=== PATIENT | male | born 1930 | race Caucasian/White ===

== ENCOUNTER 2018-09-30 03:08 | Inpatient (IN) | payer OTHER, BC ==
[~2018-09-30] VITALS: Ht 188 cm; Wt 79.9 kg
[2018-09-30 03:10] VITALS: BP_SYST 145
--- NOTE | 2018-09-30 03:10 | NUR ---
Patient to ER bed 8 to gown for evaluation. Side rails up.
--- NOTE | 2018-09-30 03:25 | NUR ---
ER at bedside examining patient.
[2018-09-30] MEDS ORDERED: NS 500 ML IV ONE (03:30)
[2018-09-30] MEDS ORDERED: ASPIRIN 81 MG TAB.CHEW PO ONE (03:45)
[2018-09-30] MEDS ORDERED: PANTOPRAZOLE SODIUM 40 MG/VIAL (PROTONIX) IVP ONE (03:45)
[2018-09-30] MEDS ORDERED: NITROGLYCERIN 1 INCH (GM) OINT. TP ONE (03:45)
[2018-09-30 04:18] LABS: BASOPHILS % (AUTO) 0.3 % (0.0-2.0); EOSINOPHILS # (AUTO) 0.1 K/uL (0.0-0.4); EOSINOPHILS % (AUTO) 0.6 % (0.0-4.0); HEMATOCRIT 40.8 % (36-54); HEMOGLOBIN 13.4 g/dL (14.0-18.0); LYMPHOCYTES # (AUTO) 0.9 K/uL (1.0-5.5); LYMPHOCYTES % (AUTO) 10.2 % (20.5-51.5); MEAN CORPUSCULAR HEMOGLOBIN 32 pg (27-31); MEAN CORPUSCULAR HGB CONC 33 % (32-36); MEAN CORPUSCULAR VOLUME 96 fL (79.0-98.0); MONOCYTES # (AUTO) 0.6 K/uL (0.0-1.0); MONOCYTES % (AUTO) 6.6 % (1.7-9.3); NEUTROPHILS # (AUTO) 6.8 K/uL (1.8-7.7); NEUTROPHILS % (AUTO) 82.3 % (40.0-70.0); PLATELET COUNT (AUTO) 196 K/uL (130-430); RED BLOOD CELL COUNT(AUTO) 4.25 MIL/uL (4.2-6.2); RED CELL DISTRIBUTION WIDTH 12.1 % (9.0-15.0); WHITE BLOOD COUNT (AUTO) 8.4 K/uL (4.8-10.8)
--- NOTE | 2018-09-30 04:20 | NUR ---
Patient arrived from home aaox4 and able to verbalize his needs. Able to ambulate with a steady gait. Complaints of chest pressure since 1300 09/29/18. Took peptobismol without any relief. Pain to the left chest, non radiating. Denies any sob, fever, or chills. patient states "feels like indigestion". No other medications taken.
[2018-09-30 04:51] LABS: ANION GAP 7 (5-15); CALCIUM 9.7 mg/dL (8.4-11.0); CHLORIDE 97 mmol/L (98-107); CREATININE 1.13 mg/dL (0.55-1.30); GLUCOSE 139 mg/dL (70-99); POTASSIUM 3.9 mmol/L (3.5-5.1); SODIUM SERUM 133 mmol/L (136-145); UREA NITROGEN, BLOOD 18 mg/dL (8-21)
[2018-09-30 04:54] LABS: PROTHROMBIN TIME 9.9 SECS (9.5-12.5)
[2018-09-30 04:56] LABS: ALANINE AMINOTRANSFERASE 28 U/L (12-78); ALBUMIN 3.6 g/dL (3.4-4.8); ASPARTATE AMINOTRANSFERASE 28 U/L (10-37); TOTAL BILIRUBIN 1.4 mg/dL (0.0-1.0)
--- NOTE | 2018-09-30 05:10 | NUR ---
Patient resting in bed comfortably with at the bedside. States "Pain is at the same level". No respiratory distress.
[2018-09-30] MEDS ORDERED: MORPHINE 4 MG/ML INJ. SYRINGE IVP ONE (05:15)
[2018-09-30] MEDS ORDERED: LIDOCAINE VISCOUS 2%, 15 ML UDC MM ONE (05:15)
[2018-09-30] MEDS ORDERED: BELLADONNA ALKALOIDS/PHENOBARB 5 ML UDC PO ONE (05:15)
[2018-09-30] MEDS ORDERED: MAG-AL HYDROX/SIMETH 30 ML UDC PO ONE (05:15)
[2018-09-30] MEDS ORDERED: TERA5CAP4 PO (05:54)
[2018-09-30] MEDS ORDERED: NITROGLYCERIN 0.4 MG TAB.SUBL SL PRN (06:30)
[2018-09-30] MEDS ORDERED: MORPHINE 4 MG/ML INJ. SYRINGE IVP PRN (06:30)
--- NOTE | 2018-09-30 06:47 | NUR ---
Patient will be admitted to care of Dr Chambers. Admitted to Tele unit. Will go to room 130-A. Belongings list completed. Summary report printed. Report will be given at bedside.
--- NOTE | 2018-09-30 07:05 | NUR ---
Admission Note Received patient from ER with diagnosis of chest pain. Initial Plan of Care discussed-patient verbalized understanding. Family at bedside. Oriented to room, call light, pain management and safety.
--- NOTE | 2018-09-30 07:06 | NUR ---
CONSULTATION PAGED REASON FOR CONSULTATION:CHEST PAIN WAS CONSULT CALLED?Y PERSON WHO WAS NOTIFIED:LONG CONSULTING PHYSICIAN:LENIN CHILDS MASTER BLACK BELT SPECIALTY:CARDIO MASTER BLACK BELT PHONE NUMBER:[phone] ORDERING PHYSICIAN:[facility]
--- NOTE | 2018-09-30 07:08 | NUR ---
CONSULTATION PAGED REASON FOR CONSULTATION:GASTRIC REFLUX WAS CONSULT CALLED?Y PERSON WHO WAS NOTIFIED:NILSA CONSULTING PHYSICIAN:ADEN MISHRA ([facility] NURSE SPECIALIST) SHAPER MACHINE HAND SPECIALTY:GI SHAPER MACHINE HAND PHONE NUMBER:[phone] ORDERING PHYSICIAN:MICHELE DEJESUS
[2018-09-30 07:17] VITALS: BP_SYST 129
[2018-09-30 08:00] VITALS: BP_SYST 124
--- NOTE | 2018-09-30 08:30 | NUR ---
opening note pt awake alert, c/o back discomfort due to bed. pt reoriented to call light use, bed alarm is in place with bed in the lowest position.
[2018-09-30] MEDS: PANTOPRAZOLE SODIUM 40 MG/VIAL (PROTONIX) IVP SCH ×2 (09:00→21:24)
[2018-09-30] MEDS: MORPHINE 4 MG/ML INJ. SYRINGE IVP PRN (10:00)
--- NOTE | 2018-09-30 10:15 | NUR ---
PT C/O PAIN GIVEN MORPHINE PRN PER ORDER. Addendum: 09/30/18 at 1840 by Sara Newton RN RIGHT SIDED CHEST PAIN
[2018-09-30 12:30] VITALS: BP_SYST 128
--- NOTE | 2018-09-30 14:53 | NUR ---
p t resting in bed no distress. safety maintained.
--- NOTE | 2018-09-30 16:19 | NUR ---
pt ambulating with family at this time.
[2018-09-30 16:40] VITALS: BP_SYST 122
--- NOTE | 2018-09-30 18:38 | NUR ---
PT AMBULATING STEADY GAIT WITH FAMILY.
--- NOTE | 2018-09-30 19:15 | NUR ---
OPENING NOTES Late entry due to patient care. Bedside report received from day shift nurse. Patient received AOx4, awake, watching TV at this time. No s/s of acute distress noted, patient states discomfort at chest, 3/10 pain, but tolerable. HOB raised. Call light with patient. Bed alarm on. Bed is locked and at lowest position. Will continue to monitor.
--- NOTE | 2018-09-30 19:35 | NUR ---
closing note all need met through shift, safety maintained, care endorsed to retail shift supervisor, rn
[2018-09-30 20:00] VITALS: BP_SYST 128
[2018-09-30] MEDS ORDERED: TERAZOSIN HCL 5 MG CAPSULE (HYTRIN) PO SCH (21:00)
--- NOTE | 2018-09-30 21:20 | NUR ---
REFUSED MEDS/EDUCATION:HOME MEDS/NEW IV SITE Patient refused BP medication, Hytrin, patient stated that his brought that medication and he took 10 mg already. Patient's BP within normal limits at this time. Patient educated to not take medications from home and to only take medications approved by his doctor during his stay in the hospital. Patient verbalized understanding. Previous IV site was accidentally pulled out, right AC, 20G, catheter fully intact, no active bleeding noted. New IV site initiated at right wrist, 20G, patent, no signs of infiltration noted. Call light with patient. Bed alarm on. Will continue to monitor.
--- NOTE | 2018-09-30 23:00 | NUR ---
ROUNDS Patient sleeping at this time. No s/s of acute distress noted. Breathing even and unlabored. Call light with patient. Will continue to monitor.
--- NOTE | 2018-10-01 01:00 | NUR ---
ROUNDS Patient sleeping comfortably. No s/s of acute distress noted. Breathing even and unlabored. Call light with patient. Will continue to monitor.
[2018-10-01 01:04] VITALS: BP_SYST 122
[2018-10-01] MEDS: MORPHINE 4 MG/ML INJ. SYRINGE IVP PRN (02:10)
--- NOTE | 2018-10-01 02:10 | NUR ---
CHEST PAIN Patient complained of 7/10 chest pain at this time. Patient stated that it hurts when he takes a deep breath. Morphine to be administered per PRN orders.
--- NOTE | 2018-10-01 04:00 | NUR ---
TACHYCARDIA RN made aware that patient's heart rate spikes up from 120-130, then comes back down to normal limits. Patient in bed, denies any pain or discomfort, no SOB, breathing even and unlabored. BP 106/59, SPO2 94, respiratory rate is 16. No s/s of acute distress noted. Will continue to monitor.
--- NOTE | 2018-10-01 05:00 | NUR ---
REASSESSED/ASSISTED TO BATHROOM Patient assisted to bathroom and back to bed, tolerated activity well, no s/s of acute distress noted, patient denies chest pain or trouble breathing. Breathing is even and unlabored. BP at 110/62, Respiration rate 16, SPO2 94. Heart rate still erratic, goes as high as 130 and goes back to normal limits. Call light with patient, will continue to monitor.
--- NOTE | 2018-10-01 06:45 | NUR ---
CLOSING NOTE Patient in bed resting, eyes closed, appears to be asleep. No s/s of acute distress noted. Breathing is even and unlabored. IV site is patent, no signs of infiltration or infection. HOB raised. All needs met throughout shift. Fall and safety precautions maintained throughout shift. Will continue to monitor until patient care is endorsed to oncoming day shift nurse.
[2018-10-01] MEDS ORDERED: SIMETHICONE 40 MG/0.6 ML ML ONE (06:46)
[2018-10-01] MEDS: MIDAZOLAM HCL 5 MG/5 ML VIAL ONE ×3 (06:47→07:37)
[2018-10-01] MEDS: MEPERIDINE HCL/PF 100 MG/ML AMP ONE ×2 (06:47→07:34)
[2018-10-01 06:57] LABS: BASOPHILS # (AUTO) 0.1 K/uL (0.0-0.2); BASOPHILS % (AUTO) 0.6 % (0.0-2.0); EOSINOPHILS % (AUTO) 0.5 % (0.0-4.0); HEMATOCRIT 36.6 % (36-54); HEMOGLOBIN 12.4 g/dL (14.0-18.0); LYMPHOCYTES # (AUTO) 0.9 K/uL (1.0-5.5); LYMPHOCYTES % (AUTO) 10.8 % (20.5-51.5); MEAN CORPUSCULAR HEMOGLOBIN 33 pg (27-31); MEAN CORPUSCULAR HGB CONC 34 % (32-36); MEAN CORPUSCULAR VOLUME 96 fL (79.0-98.0); MONOCYTES # (AUTO) 0.8 K/uL (0.0-1.0); NEUTROPHILS # (AUTO) 6.6 K/uL (1.8-7.7); NEUTROPHILS % (AUTO) 79.1 % (40.0-70.0); PLATELET COUNT (AUTO) 158 K/uL (130-430); RED BLOOD CELL COUNT(AUTO) 3.81 MIL/uL (4.2-6.2); WHITE BLOOD COUNT (AUTO) 8.4 K/uL (4.8-10.8)
[2018-10-01 07:04] LABS: CHOLESTEROL 111 mg/dL (<200); HDL CHOLESTEROL 58 mg/dL (>45); LDL CHOLESTEROL 47 mg/dL (<100); TRIGLYCERIDES 39 mg/dL (30-150)
[2018-10-01 07:06] LABS: ALANINE AMINOTRANSFERASE 52 U/L (12-78); ALBUMIN 2.8 g/dL (3.4-4.8); ANION GAP 9 (5-15); CALCIUM 8.9 mg/dL (8.4-11.0); CHLORIDE 101 mmol/L (98-107); CREATININE 1.16 mg/dL (0.55-1.30); GLUCOSE 135 mg/dL (70-99); POTASSIUM 4.1 mmol/L (3.5-5.1); SODIUM SERUM 140 mmol/L (136-145); TOTAL BILIRUBIN 1.6 mg/dL (0.0-1.0); UREA NITROGEN, BLOOD 18 mg/dL (8-21)
[2018-10-01 07:07] LABS: ASPARTATE AMINOTRANSFERASE 48 U/L (10-37); LIPASE 105 U/L (73-393)
--- NOTE | 2018-10-01 07:15 | NUR ---
Opening Note/Patient Taken to EGD patient resting in bed, awake and alert, at bedside, denies pain, breathing unlabored and symmetrical, patient being taken to EGD, safety precautions in place, will assess when he returns
--- NOTE | 2018-10-01 08:33 | NUR ---
Patient Back on Unit/Ultrasound At Bedside at this time, will assess when finished
[2018-10-01] MEDS: PANTOPRAZOLE SODIUM 40 MG/VIAL (PROTONIX) IVP SCH (09:52)
[2018-10-01 09:56] VITALS: BP_SYST 104
--- NOTE | 2018-10-01 09:57 | NUR ---
Medication Administration educated patient regarding med, verbalized understanding, IV site patent, denies pain, breathing unlabored and symmetrical, patient positioned to his side, educated patient regarding use of call light for assistance, verbalized understanding, call light and bedside table left within reach, will continue to monitor
--- NOTE | 2018-10-01 11:13 | NUR ---
Nutrition Update Austin Scale 17 noted. Pt admitted for chest pain. Diet: regular, 2 gm Na, cardiac, soft BMI: 22.6 kg/m2 RD to follow per nutrition care standards. Addendum: 10/01/18 at [address] CORRECTION: Austin Scale 18 noted.
--- NOTE | 2018-10-01 12:19 | NUR ---
Patient Sitting Eating lunch at this time, legs dangling, at bedside, denies pain, no SOB, no signs of distress, educated patient on use of call light for assistance, verbalized understanding, table and call light left within reach, will continue to monitor
[2018-10-01 12:36] VITALS: BP_SYST 100
[2018-10-01] MEDS ORDERED: IOHEXOL 100 ML IV ONE (13:15)
--- NOTE | 2018-10-01 13:26 | NUR ---
Patient Being Taken t Addendum: 10/01/18 at 1326 by Shira Morse RN to procedure at this time, will assess when he returns
--- NOTE | 2018-10-01 15:10 | NUR ---
Dr. Lynn Rounded updated him with patient's EGD, informed him CT of chest was performed today, verbalized understanding, stated to call Dr. Rosas and inform him of results Addendum: 10/01/18 at 1522 by Shira Morse RN Spoke with Dr. Rosas, informed him of CT chest results, stated patient is cleared from a cardiac standpoint, will call Dr. Lynn and inform
--- NOTE | 2018-10-01 15:30 | NUR ---
Paged Dr. Lynn at this time to inform him patient cleared by cardio, will await call back
--- NOTE | 2018-10-01 16:33 | NUR ---
Paged Dr. Lynn at this time, will await call back
[2018-10-01 16:37] VITALS: BP_SYST 110
--- NOTE | 2018-10-01 17:15 | NUR ---
Spoke with Dr. Lynn informed him spoke with Dr. Rosas and stated he is cleared on cardiac standpoint, Dr. Lynn verbalized understanding, stated patient can be discharged and stated patient can call office tomorrow for prescription, will inform patient and
[2018-10-01 17:53] VITALS: BP_SYST 110
[2018-10-02 08:10] LABS: HEPATITIS A AB, IgM Negative (Negative); HEPATITIS B CORE AB, IgM Negative (Negative); HEPATITIS B SURFACE AG Negative (Negative)
--- NOTE | 2018-10-02 14:22 | NUR ---
DISCHARGE FOLLOW UP PHONE CALL SUPERVISOR TUMBLING AND ROLLING phoned pt and spoke with spouse, Aylin. Per Aylin, pt is doing well; no pain, slept well and ate well. Per Aylin, she is awaiting a call back from Dr. Lynn's office for pt's prescription and awaiting for Dr. Lewis's office to call back for a follow up appointment. Per Aylin, there are no questions/concerns regarding the discharge instructions that were given and will call SS if any arise. SUPERVISOR TUMBLING AND ROLLING provided Aylin with SS/CM office phone number. At this time, no further calls needed.
== END 2018-10-01 18:15 | disposition home or self-care (01) | DRG 392 ==
LOC: SED 03:08 → STU 06:22
PROVIDERS: ADMIT Internal Medicine Nephrology; ATTEND Internal Medicine Nephrology
PROC: 0DB68ZX Excision of Stomach, Via Natural or Artificial Opening Endoscopic, Diagnostic (ICD-10-PCS; 2018-10-01)
PROC: 0DB98ZX Excision of Duodenum, Via Natural or Artificial Opening Endoscopic, Diagnostic (ICD-10-PCS; principal; 2018-10-01 07:30)
DX: K21.0 Gastro-esophageal reflux disease with esophagitis (principal); I24.9 Acute ischemic heart disease, unspecified; M19.90 Unspecified osteoarthritis, unspecified site; K29.70 Gastritis, unspecified, without bleeding; R07.89 Other chest pain; I10 Essential (primary) hypertension; I45.10 Unspecified right bundle-branch block; K44.9 Diaphragmatic hernia without obstruction or gangrene; N40.0 Benign prostatic hyperplasia without lower urinary tract symptoms; Z86.010 Personal history of colon polyps; Z87.442 Personal history of urinary calculi; Z87.891 Personal history of nicotine dependence; Z90.49 Acquired absence of other specified parts of digestive tract
CPT/HCPCS: 36415; 43239; 71045; 71260-TC; 76700-TC; 80053; 80061; 80074; 83036; 83605; 83690-TC; 84484; 85025; 85610-TC; 85730-TC; 87040-TC; 87081; 88305; 88312; 88313; 93005; 93306; 96361; 96374; 96375; 99285; C9113; G0378; J2001; J2175; J2250; J2270; J7040; Q9967

== ENCOUNTER 2020-01-29 12:59 | Inpatient (IN) | payer BC, OTHER ==
[~2020-01-29] VITALS: Ht 188 cm; Wt 77.1 kg
[~2020-01-29 12:59] MED LIST: TERA5CAP4 PO
--- NOTE | 2020-01-29 13:09 | NUR ---
Patient to ER bed 06 to gown for evaluation. Side rails up.
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
[2020-01-29 13:14] VITALS: BP_SYST 137
--- NOTE | 2020-01-29 14:10 | NUR ---
Patient transported to CT scan via [facility] , accompanied by limited radiology technician.
--- NOTE | 2020-01-29 14:38 | NUR ---
pt back from CT scan via [facility]. Stable
--- NOTE | 2020-01-29 14:47 | NUR ---
Pt Lena Christiansen called w/ a callback number [phone].
[2020-01-29] MEDS ORDERED: KETOROLAC TROMETHAMINE 60 MG/2 ML VIAL IM ONE (15:15)
--- NOTE | 2020-01-29 15:25 | NUR ---
Pt given Ketoralac 60 IM VL, tolerated well, no adverse reaction noted.
--- NOTE | 2020-01-29 16:21 | NUR ---
# 22 gauge angiocath placed to RAC. Use of asceptic technique. Opsite placed over site. Blood return noted. Flushed with 10 cc of normal saline. No evidence of infiltration noted. Patient tolerated well.
[2020-01-29 17:01] LABS: BASOPHILS % (AUTO) 0.6 % (0.0-2.0); EOSINOPHILS # (AUTO) 0.3 K/uL (0.0-0.4); EOSINOPHILS % (AUTO) 3.5 % (0.0-4.0); HEMATOCRIT 33.7 % (36-54); HEMOGLOBIN 11.5 g/dL (14.0-18.0); LYMPHOCYTES # (AUTO) 1.2 K/uL (1.0-5.5); MEAN CORPUSCULAR HEMOGLOBIN 33 pg (27-31); MEAN CORPUSCULAR HGB CONC 34 % (32-36); MEAN CORPUSCULAR VOLUME 98 fL (79.0-98.0); MONOCYTES # (AUTO) 0.4 K/uL (0.0-1.0); MONOCYTES % (AUTO) 5.5 % (1.7-9.3); NEUTROPHILS # (AUTO) 5.7 K/uL (1.8-7.7); NEUTROPHILS % (AUTO) 74.4 % (40.0-70.0); PLATELET COUNT (AUTO) 172 K/uL (130-430); RED BLOOD CELL COUNT(AUTO) 3.46 MIL/uL (4.2-6.2); RED CELL DISTRIBUTION WIDTH 12.8 % (9.0-15.0); WHITE BLOOD COUNT (AUTO) 7.7 K/uL (4.8-10.8)
--- NOTE | 2020-01-29 17:07 | NUR ---
Pt stable, vitals WNL, and will be admitted. Waiting for bed placement from med surg.
[2020-01-29 17:16] LABS: ANION GAP 7 (5-15); CALCIUM 8.3 mg/dL (8.4-11.0); CHLORIDE 107 mmol/L (98-107); CREATININE 1.18 mg/dL (0.55-1.30); GLUCOSE 104 mg/dL (70-99); POTASSIUM 3.8 mmol/L (3.5-5.1); SODIUM SERUM 138 mmol/L (136-145); UREA NITROGEN, BLOOD 23 mg/dL (8-21)
[2020-01-29 17:21] LABS: ALANINE AMINOTRANSFERASE 20 U/L (12-78); ALBUMIN 3.2 g/dL (3.4-4.8); ASPARTATE AMINOTRANSFERASE 20 U/L (10-37); TOTAL BILIRUBIN 0.5 mg/dL (0.0-1.0)
--- NOTE | 2020-01-29 17:30 | NUR ---
Patient will be admitted to care of Dr. Vinson. Admitted to Med Surg unit. Will go to room 112b. Belongings list completed. Complete and up to date summary report printed. SBAR report to be given to RN on the phone.
--- NOTE | 2020-01-29 17:45 | NUR ---
Patient transferred to unit in stable condition via gurney.
[2020-01-29 18:00] VITALS: BP_SYST 132
--- NOTE | 2020-01-29 19:37 | NUR ---
paged paged for Dr Valero, dialed . s/w Yadira.
--- NOTE | 2020-01-29 19:40 | NUR ---
SPOKE WITH DR. PATTIE MD ORDERED TO CONTINUE HOME MEDICATION TERAZOSIN.
--- NOTE | 2020-01-29 19:55 | NUR ---
OPENING NOTES Received report from LAURY Newby. Patient resting in bed, AAOx4, breathing evenly and nonlabored on room air. Patient has an IV on the right AC 22g SL, flushed, patent and benign, no s/s of infection or infiltration noted at this time. Educated patient on plan of care, fall/safety precautions, call light system, patient stated understanding with return demonstration. Bed is locked, armed, and at lowest position, will continue to monitor.
[2020-01-29 20:05] VITALS: BP_SYST 124
--- NOTE | 2020-01-29 20:30 | NUR ---
ADMISSION DATA AND ASSESSMENT DONE.
[2020-01-29] MEDS ORDERED: MORPHINE 2 MG/ML INJ. SYRINGE IVP PRN (20:45)
[2020-01-29] MEDS ORDERED: METOCLOPRAMIDE HCL 10 MG/2 ML VIAL IVP PRN (20:45)
[2020-01-29] MEDS ORDERED: ONDANSETRON HCL 4 MG/2 ML VIAL IVP PRN (20:45)
[2020-01-29] MEDS: TERAZOSIN HCL 5 MG CAPSULE (HYTRIN) PO SCH (21:06)
[2020-01-29] MEDS: ACETAMINOPHEN 325 MG TABLET PO PRN (21:07)
--- NOTE | 2020-01-29 21:07 | NUR ---
DUE MEDICATION AND PAIN MED GIVEN Patient resting in bed, awake, breathing evenly and nonlabored on room air. Educated patient on due medication, patient stated understanding. Patient complained of mild pain, educated patient on pain medication, nonpharmacological interventions. Administered medications, patient tolerated them well. Patient asked for some snacks which was provided. No other needs at this time. Fall/safety/seizure/isolation precautions, will continue to monitor. Addendum: 01/30/20 at 0315 by Brennen Serrano RN DUE MEDICATION AND PAIN MED GIVEN Patient resting in bed, awake, breathing evenly and nonlabored on room air. Educated patient on due medication, patient stated understanding. Patient complained of mild pain, educated patient on pain medication, nonpharmacological interventions. Administered medications, patient tolerated them well. Patient asked for some snacks which was provided. No other needs at this time. Fall/safety precautions, will continue to monitor.
--- NOTE | 2020-01-29 22:30 | NUR ---
WOUND PICTURES TAKEN.
[2020-01-30 00:11] VITALS: BP_SYST 106
--- NOTE | 2020-01-30 00:25 | NUR ---
ROUNDS Patient resting in bed, eyes closed, breathing evenly and nonlabored on room air. No s/s of distress at this time, no other needs at this time. Fall/safety precautions, will continue to monitor.
--- NOTE | 2020-01-30 02:15 | NUR ---
ROUNDS Patient resting in bed, awake, breathing evenly and nonlabored on room air. Patient complained of some mild discomfort on the left knee and left hip, ice pack provided, patient is tolerating it well. No s/s of distress at this time, no other needs at this time. Fall/safety precautions, will continue to monitor the patient.
--- NOTE | 2020-01-30 04:05 | NUR ---
ROUNDS Patient resting in bed, eyes closed, breathing evenly and nonlabored on room air. No s/s of distress at this time, no other needs at this time. Fall/safety precautions, will continue to monitor the patient.
[2020-01-30] MEDS: ACETAMINOPHEN 325 MG TABLET PO PRN ×3 (06:13→23:31)
--- NOTE | 2020-01-30 06:13 | NUR ---
CLOSING NOTES Patient resting in bed, awake, breathing evenly and nonlabored on room air. Patient complained of mild pain, educated patient on pain medication, nonpharmacological interventions. Administered pain medication, patient tolerated it well. Patient is requesting for Physical Therapy "to help him start walking around." No other needs at this time. Needs met throughout the shift. Fall/safety precautions, will endorse care to morning shift RN.
--- NOTE | 2020-01-30 07:55 | NUR ---
Opening note patient resting in bed, a/ox4, states mild but tolerable pain at this time, assisted patient with urinal at this time, tolerated well, educated him bonding agent light system and plan of care, he verbalized understanding, bed in lowest position, three side rails up, bed alarm on, bed close to nursing station, fall and aspiration precautions in place.
--- NOTE | 2020-01-30 09:20 | NUR ---
Dr. Vinson rounds received orders for physical therapy - per Dr. Vinson, patient does not have COVID-19 symptoms but he would still like for the test to be performed - will follow up.
[2020-01-30 10:24] VITALS: BP_SYST 126
--- NOTE | 2020-01-30 10:30 | NUR ---
RN rounds patient resting in bed, awake, assisted to bedside commode, patient had a bowel movement, tolerated well, no other needs at this time, bed in lowest position, three side rails up, bed alarm on, bed close to nursing station, call light placed within reach, fall and aspiration precautions in place, continuing to monitor.
[2020-01-30 12:00] VITALS: BP_SYST 129
--- NOTE | 2020-01-30 12:15 | NUR ---
RN rounds patient resting in bed, awake, denies pain, eating lunch, aspiration precautions in place, no other needs at this time, bed in lowest position, two side rails up, bed close to nursing station, call light placed within reach, fall and aspiration precautions in place.
--- NOTE | 2020-01-30 13:51 | NUR ---
RN rounds patient resting in bed, awake, denies pain, Data Processing Control Clerk Bonnie at bedside, patient is not sure yet if he would like to go to a SNF for rehab or if he wants to just go home, he will decide and inform the nurse, patient has no other needs at this time, bed in lowest position, two side rails up, call light within reach, call light placed within reach, fall and aspiration precautions in place.
--- NOTE | 2020-01-30 15:30 | NUR ---
Spoke with Ministerio Spoke with Thalia at [facility], regarding DC planning - the patient would like to go home with home health, however Dr. Vinson is recommending SNF - the patient does have a walker at home - Thalia was transferred to the patient to speak with him. Thalia [phone].
--- NOTE | 2020-01-30 15:50 | NUR ---
RN rounds patient resting in bed, awake, denies pain at rest, spoke with him about DC planning, patient is still unsure about what he wants to do, no other needs at this time, bed in lowest position, two side rails up, call light within reach, fall and aspiration precautions in place, continuing to monitor.
--- NOTE | 2020-01-30 17:04 | NUR ---
SUZANNA grover spoke with Kisha from [facility], she received a call from Thalia from [facility] - according to Kisha, the patient and his are agreeable to transfer to SNF for rehab - the patient has a bed - informed Kisha that the patient does not have COVID symptoms but Dr. Vinson requested for the patient to be test for COVID - COVID testing was done but results are not back yet - inquired if the patient needs a negative result prior to transfer - Kisha will follow up with Thalia from [facility]. carton and can supply supervisor time is set for 8pm tonight with [facility] to [facility] [address] [place] [address]. number to call report [phone], room 4A. Pending call back from Robin who will call Thalia regarding COVID test.
--- NOTE | 2020-01-30 17:27 | NUR ---
RN rounds/Tylenol patient calling at this time, assisted patient to sit up to use the urinal, he voided and tolerated well, patient asking for Tylenol, educated on medication uses and potential side effects, he verbalized understanding and tolerated well, no other needs at this time, bed in lowest position, two side rails up, call light placed within reach, fall and aspiration precautions in place, continuing to monitor.
--- NOTE | 2020-01-30 17:49 | NUR ---
Called [facility] ([facility]) spoke with Heather - the patient must have a negative COVID result prior to transfer to the SNF.
--- NOTE | 2020-01-30 17:52 | NUR ---
Spoke with Ministerio Spoke with Antonina - she will contact the [employer] who is covering this service area - informed Antonina that the SNF stated that they will not accept the patient without a negative COVID result - will follow up as needed.
--- NOTE | 2020-01-30 17:56 | NUR ---
Called [facility] [phone] - changed patient pickling solution maker from 8pm to will call.
--- NOTE | 2020-01-30 18:10 | NUR ---
Spoke with Ministerio Spoke with Cindy regarding DC planning - Cindy stated that the patient does not need a negative COVID test for transfer to SNF - informed of call to [facility] saying patient does need a negative COVID test prior to transfer - DC held for now, Cindy will reach out to Dr. Vinson as well.
--- NOTE | 2020-01-30 18:27 | NUR ---
Closing note patient resting in bed, eyes closed, breathing is even and unlabored, all needs met, will endorse report to NOC shift nurse, bed in lowest position, two side rails up, call light within reach, fall and aspiration precautions in place.
--- NOTE | 2020-01-30 21:00 | NUR ---
RN Rounds Patient is resting in bed at this time. Breathing is even and unlabored. No signs of distress noted. No pain.Vital signs are stable. No other needs at this time. Bed is locked in the lowest position with call light within reach. Side rails up X 3. Bed alarm is on
[2020-01-30] MEDS: TERAZOSIN HCL 5 MG CAPSULE (HYTRIN) PO SCH (21:02)
[2020-01-30 23:04] VITALS: BP_SYST 127
[2020-01-31] VITALS (7 sets, daily range): BP systolic 115–133
--- NOTE | 2020-01-31 06:53 | NUR ---
CLOSING NOTES Patient resting in bed, awake, breathing evenly and nonlabored on room air. Assisted the patient to up in chair.No other needs at this time. Needs met throughout the shift. Fall/safety precautions, will endorse care to morning shift RN.
--- NOTE | 2020-01-31 08:00 | NUR ---
Opening note A/O x 4. Sitting up eating breakfast. RA. Complaints of pain in left knee when moving. Call light in hand. Informed pt to call when transitioning back to bed. Will continue to monitor.
--- NOTE | 2020-01-31 09:42 | NUR ---
MD MELANIE GASTON CALLED AT [phone]JANDIAL KIM RAJNISH PONY EDGER.
--- NOTE | 2020-01-31 10:14 | NUR ---
Nutrition Update Austin Scale 18 noted. Pt admitted for fall. Diet: Regular BMI: 21.8 kg/m2 RD to follow per nutrition care standards.
[2020-01-31] MEDS ORDERED: PANTOPRAZOLE SODIUM 40 MG TAB PO ONE (10:15)
--- NOTE | 2020-01-31 10:29 | NUR ---
Case mgt: Rec'd orders for discharge with home health and FWW--orders faxed to [facility] fax#[phone]--s/w pt's nurse Compa and let him know I'm faxing orders to [facility]-- RN
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
--- NOTE | 2020-01-31 13:00 | NUR ---
Discharged PT. Transferred pt by wheelchair to private auto. No incidence. Removed IV, discharged with personal belongings. Pt ambulatory with veterinarian assistant. Discharge paper work signed and discharge instruction given.
--- NOTE | 2020-02-02 14:32 | NUR ---
SS NOTES/DISCHARGE FOLLOW UP CALL: SECURITY RISK ANALYST phoned pt who was asleep but spoke with spouse, Aylin. Per spouse, pt is "doing well and walking". Spouse stated they were able to obtain the FWW and pt has not been using the bedside commode, but is going to the bathroom normally. Per spouse, Ministerio has made arrangements with Home Health and is arranging for PT and nurse to visit him within 24 hrs. Per spouse, they will make the call to PCP for a follow-up appointment. No further follow up call needed at this time.
== END 2020-01-31 13:10 | disposition home health service (06) | DRG 914 ==
LOC: SED 12:59 → SMU 17:05
PROVIDERS: ADMIT Internal Medicine Hospice and Palliative Medicine; ATTEND Internal Medicine Hospice and Palliative Medicine
DX: S79.912A Unspecified injury of left hip, initial encounter (principal); M25.552 Pain in left hip; N40.0 Benign prostatic hyperplasia without lower urinary tract symptoms; D64.9 Anemia, unspecified; R73.9 Hyperglycemia, unspecified; E83.51 Hypocalcemia; E88.09 Other disorders of plasma-protein metabolism, not elsewhere classified; Z87.442 Personal history of urinary calculi; V18.4XXA Pedal cycle driver injured in noncollision transport accident in traffic accident, initial encounter; Y93.55 Activity, bike riding; Y92.89 Other specified places as the place of occurrence of the external cause; Y99.8 Other external cause status; Z79.899 Other long term (current) drug therapy; Z90.49 Acquired absence of other specified parts of digestive tract; Z03.818 Encounter for observation for suspected exposure to other biological agents ruled out
CPT/HCPCS: 36415; 70450-TC; 72125-TC; 72192-TC; 80053; 85025; 87081; 96372; 97112-GP; 97116-GP; 97530-GP; 99285; J1885; U0002